=== PATIENT | female | born 1970 | race American Indian/Alaskan Native ===

== ENCOUNTER 2017-07-17 13:45 | Emergency (ER) | payer MEDICARE, MEDICAID | END 2017-07-17 14:30 | disposition left against medical advice (07) | LOC: DL.ED 13:45 | DX: Z53.21 Procedure and treatment not carried out due to patient leaving prior to being seen by health care provider (principal) ==

== ENCOUNTER 2017-07-22 10:06 | Emergency (ER) | payer MEDICARE, MEDICAID ==
[2017-07-22] MEDS ORDERED: Sodium Chloride 0.9% 10 ML Syringe FLUSH PRN (10:20)
--- NOTE | 2017-07-22 10:47 | EDM.PDOC ---
ED HPI GENERAL MEDICAL PROBLEM - General Chief Complaint: General Stated Complaint: COMING FROM DIALYSIS Time Seen by Provider: 07/22/17 10:30 Source of Information: Reports: Patient, RN (dialysis) History Limitations: Reports: No Limitations - History of Present Illness INITIAL COMMENTS - FREE TEXT/NARRATIVE: Patient transferred to ER from dialysis. She has not ran dialysis today. Last run was Wednesday07/20/17. Dialysis nurse states that the patient was seen by a Nurse Practitioner in dialysis who would like the patient evaluated in ER and ultimately sent to [facility] for evaluation by her body shop manager. education research analyst states her skin is yellow, sclera is yellow, and when dialyzed, the dialyzer is yellow. Patient states she has been having some "tummy pain" and points to the right side of her abdomen. Patient is unsure if she has had a fever, but states she has had chills a few times in the past few days. Onset: Gradual Associated Symptoms: Reports: Nausea/Vomiting - Related Data Allergies Allergy/AdvReac Type Severity Reaction Status Date / Time No Known Allergies Allergy Verified 12/31/14 08:03 Home Meds: Home Meds Levothyroxine 125 mcg PO DAILY 12/31/14 [History] Metoprolol Succinate [Toprol XL] 25 mg PO DAILY 12/31/14 [History] Omeprazole [Omeprazole] 20 mg PO DAILY 12/31/14 [History] Sertraline HCl [Sertraline HCl] 150 mg PO DAILY 12/31/14 [History] Simvastatin [Simvastatin] 40 mg PO DAILY 12/31/14 [History] buPROPion HCl [Bupropion Xl] 1 tab PO DAILY 11/25/15 [History] Calcium Carbonate/Vitamin D3 [Calcium Carb 500 MG] 07/22/17 [History] Cholecalciferol (Vitamin D3) [Vitamin D3] 07/22/17 [History] Formoterol Fumarate [Perforomist] 07/22/17 [History] Insulin Detemir [Levemir Flextouch] 07/22/17 [History] Menthol/Zinc Oxide [Calmoseptine Ointment Packet] 07/22/17 [History] Midodrine 07/22/17 [History] Sevelamer Carbonate [Renvela] 07/22/17 [History] Past Medical History Cardiovascular History: Reports: Hypertension Respiratory History: Reports: Sleep Apnea, SOB Genitourinary History: Reports: Dialysis 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 Left necrotic foot Neurological History: Reports: Other (See Below) Other Neuro History: pt is mentally challenged Endocrine/Metabolic History: Reports: Diabetes, Type II, IDDM, Obesity/BMI 30+ Other Immunologic History: MRSA - Infectious Disease History Infectious Disease History: Reports: MRSA Social & Family History - Family History Cardiac: Reports: CAD - Tobacco Use Smoking Status *Q: Never Smoker Second Hand Smoke Exposure: No - Alcohol Use Days Per Week of Alcohol Use: 0 - Recreational Drug Use Recreational Drug Use: No - Living Situation & Occupation Living situation: Reports: , with Spouse, with Family Occupation: Disabled ED ROS GENERAL - Review of Systems Review Of Systems: See Below Constitutional: Reports: Chills, Fatigue, Decreased Appetite, Weight Loss HEENT: Reports: No Symptoms Respiratory: Reports: No Symptoms Cardiovascular: Reports: No Symptoms Endocrine: Reports: High Glucose GI/Abdominal: Reports: Abdominal Pain : Reports: Other (patient does outpatient dialysis 3x weekly) Skin: Reports: Wound (abdomen) Neurological: Reports: No Symptoms Psychiatric: Reports: Depression Hematologic/Lymphatic: Reports: No Symptoms Immunologic: Reports: No Symptoms ED EXAM, GENERAL - Physical Exam Exam: See Below Exam Limited By: No Limitations General Appearance: Alert, WD/WN, No Apparent Distress Nose: Normal Inspection Throat/Mouth: Normal Inspection, Normal Voice, No Airway Compromise Head: Atraumatic, Other Neck: Limited Range of Motion (An area on the left side of the head without hair with what appears to be an old wound. The area is darkened in pigment, but is closed and dry. ) Respiratory/Chest: No Respiratory Distress, Lungs Clear, Normal Breath Sounds, No Accessory Muscle Use, Chest Non-Tender Cardiovascular: Normal Peripheral Pulses, Regular Rate, Rhythm, No JVD, No Murmur, No Rub Back Exam: Normal Inspection, Full Range of Motion Extremities: Normal Inspection, Normal Range of Motion Course - Vital Signs Last Recorded V/S: Last Vital Signs Temp 96.9 F 07/22/17 10:06 Pulse 72 07/22/17 10:06 Resp 18 07/22/17 10:06 BP 148/78 H 07/22/17 10:06 Pulse Ox 94 L 07/22/17 10:06 - Orders/Labs/Meds Orders: Active Orders 24 hr Category Date Time Status Peripheral IV Care [RC] . DIRECTED Care 07/22/17 10:21 Active CULTURE BLOOD [] Stat Lab 07/22/17 10:40 Results CULTURE BLOOD [] Stat Lab 07/22/17 10:46 Received Sodium Chloride 0.9% [Saline Flush] Med 07/22/17 10:20 Active 10 ml FLUSH ASDIRECTED PRN Blood Culture x2 Reflex Set [OM.PC] Stat Oth 07/22/17 10:21 Ordered Peripheral IV Insertion Adult [OM.PC] Stat Ot 07/22/17 10:20 Ordered Medication Orders Sodium Chloride (Saline Flush) 10 ml FLUSH ASDIRECTED PRN PRN Reason: Keep Vein Open Last Admin: 07/22/17 11:05 Dose: 10 ml Labs: Laboratory Tests 07/22/17 07/22/17 07/22/17 Range/Units 10:14 10:46 10:46 WBC 9.7 (5.0-10.0) 10^3/uL RBC 3.68 L (4.2-5.4) 10^6/uL Hgb 10.9 L (12.0-16.0) g/dL Hct 32.7 L (37.0-47.0) % MCV 88.9 (80-100) fL MCH 29.6 (27.0-34.0) pg MCHC 33.3 (33.0-35.0) g/dL Plt Count 202 (150-450) 10^3/uL Neut % (Auto) 74.8 (42.2-75.2) % Lymph % (Auto) 15.7 L (20.5-50.1) % [place] % (Auto) 6.0 (2-8) % Eos % (Auto) 3.1 H (1.0-3.0) % Baso % (Auto) 0.4 (0.0-1.0) % Add Manual Diff Yes Neutrophils % (Manual) 68 % Band Neutrophils % 3 % Lymphocytes % (Manual) 21 % Monocytes % (Manual) 5 % Eosinophils % (Manual) 3 % Sodium 131 L (135-145) mmol/L Potassium 3.8 (3.6-5.0) mmol/L Chloride 90 L (101-111) mmol/L Carbon Dioxide 24.0 (21.0-31.0) mmol/L Anion Gap 20.8 BUN 36 H (7-18) mg/dL Creatinine 5.5 H (0.6-1.3) mg/dL Est Cr Clr Drug Dosing TNP Estimated GFR (MDRD) 8 BUN/Creatinine Ratio 6.54 Glucose 250 H (74-105) mg/dL POC Glucose 254 H (70-105) mg/dl Lactic Acid (0.5-2.2) mmol/L Calcium 8.8 (8.4-10.2) mg/dl Total Bilirubin 6.5 H (0.2-1.0) mg/dL AST 123 H (10-42) IU/L ALT 96 H (10-60) IU/L Alkaline Phosphatase 659 H (42-121) IU/L Total Protein 7.7 (6.7-8.2) g/dl Albumin 2.5 L (3.2-5.5) g/dl Globulin 5.2 Albumin/Globulin Ratio 0.48 /05/31 Range/Units 10:46 WBC (5.0-10.0) 10^3/uL RBC (4.2-5.4) 10^6/uL Hgb (12.0-16.0) g/dL Hct (37.0-47.0) % MCV (80-100) fL MCH (27.0-34.0) pg MCHC (33.0-35.0) g/dL Plt Count (150-450) 10^3/uL Neut % (Auto) (42.2-75.2) % Lymph % (Auto) (20.5-50.1) % [place] % (Auto) (2-8) % Eos % (Auto) (1.0-3.0) % Baso % (Auto) (0.0-1.0) % Add Manual Diff Neutrophils % (Manual) % Band Neutrophils % % Lymphocytes % (Manual) % Monocytes % (Manual) % Eosinophils % (Manual) % Sodium (135-145) mmol/L Potassium (3.6-5.0) mmol/L Chloride (101-111) mmol/L Carbon Dioxide (21.0-31.0) mmol/L Anion Gap BUN (7-18) mg/dL Creatinine (0.6-1.3) mg/dL Est Cr Clr Drug Dosing Estimated GFR (MDRD) BUN/Creatinine Ratio Glucose (74-105) mg/dL POC Glucose (70-105) mg/dl Lactic Acid 1.4 (0.5-2.2) mmol/L Calcium (8.4-10.2) mg/dl Total Bilirubin (0.2-1.0) mg/dL AST (10-42) IU/L ALT (10-60) IU/L Alkaline Phosphatase (42-121) IU/L Total Protein (6.7-8.2) g/dl Albumin (3.2-5.5) g/dl Globulin Albumin/Globulin Ratio Meds: Medications Generic Name Dose Route Start Last Admin Trade Name Freq PRN Reason Stop Dose Admin Sodium Chloride 10 ml 07/22/17 10:20 07/22/17 11:05 Saline Flush FLUSH 10 ml ASDIRECTED PRN Administration Keep Vein Open Departure - Departure Time of Disposition: 12:05 Disposition: DC/Tfer to [facility] 02 Condition: Fair Clinical Impression: Jaundice Chronic kidney disease (CKD) Qualifiers: Chronic kidney disease stage: on chronic dialysis Qualified Code(s): N18.6 - End stage renal disease; Z99.2 - Dependence on renal dialysis - Discharge Information Forms: ED Department Discharge, Interfacility Transfer EMTALA - My Orders Last 24 Hours: My Active Orders 07/22/17 10:20 Sodium Chloride 0.9% [Saline Flush] 10 ml FLUSH ASDIRECTED PRN Peripheral IV Insertion Adult [OM.PC] Stat 07/22/17 10:21 Peripheral IV Care [RC] . DIRECTED Blood Culture x2 Reflex Set [OM.PC] Stat 07/22/17 10:40 CULTURE BLOOD [BC] Stat 07/22/17 10:46 CULTURE BLOOD [BC] Stat - Assessment/Plan Last 24 Hours: My Active Orders 07/22/17 10:20 Sodium Chloride 0.9% [Saline Flush] 10 ml FLUSH ASDIRECTED PRN Peripheral IV Insertion Adult [OM.PC] Stat 07/22/17 10:21 Peripheral IV Care [RC] . DIRECTED Blood Culture x2 Reflex Set [OM.PC] Stat 07/22/17 10:40 CULTURE BLOOD [BC] Stat 07/22/17 10:46 CULTURE BLOOD [BC] Stat
[2017-07-22 11:13] LABS: CHLORIDE,CL 90 mmol/L (101-111); SODIUM,NA 131 mmol/L (135-145)
[2017-07-22 12:14] VITALS: BP 133/64
== END 2017-07-22 12:30 ==
LOC: DL.ED 10:06
DX: R17 Unspecified jaundice (principal); I12.0 Hypertensive chronic kidney disease with stage 5 chronic kidney disease or end stage renal disease; N18.6 End stage renal disease; E11.22 Type 2 diabetes mellitus with diabetic chronic kidney disease; E66.9 Obesity, unspecified; Z79.899 Other long term (current) drug therapy; Z89.511 Acquired absence of right leg below knee
CPT/HCPCS: 36415; 80053; 82962; 83605; 85025; 87040; 99285; J7050; 99284

== ENCOUNTER 2017-08-07 08:31 | Emergency (ER) | payer MEDICARE, MEDICAID ==
[2017-08-07 08:53] VITALS: BP 144/72
--- NOTE | 2017-08-07 08:53 | EDM.PDOC ---
ED HPI GENERAL MEDICAL PROBLEM - General Chief Complaint: Diabetic Complaint Time Seen by Provider: 08/07/17 08:33 Source of Information: Reports: EMS History Limitations: Reports: Altered Mental Status - History of Present Illness INITIAL COMMENTS - FREE TEXT/NARRATIVE: 46 yo female BIB EMS s/p AMS. Per EMS, pt was found drowsy and hard to arouse. States that she is to have dialysis at 9:00 am this morning. Pt is drowsy upon arrival, opens eyes to voice. Incomprehensible sounds. Blood glucose upon arrival <20. Given 2 orange juice and pt now more alert and answering questions appropriately. Onset: Today, Sudden Duration: Getting Worse Associated Symptoms: Reports: No Other Symptoms - Related Data Allergies Allergy/AdvReac Type Severity Reaction Status Date / Time No Known Allergies Allergy Verified 12/31/14 08:03 Home Meds: Home Meds Levothyroxine 200 mcg PO DAILY 12/31/14 [History] Sertraline HCl [Sertraline HCl] 150 mg PO DAILY 12/31/14 [History] buPROPion HCl [Bupropion Xl] 1 tab PO DAILY 11/25/15 [History] Calcium Carbonate/Vitamin D3 [Calcium Carb 500 MG] 1,000 mg PO TID 07/22/17 [ History] Cholecalciferol (Vitamin D3) [Vitamin D3] 1,000 units PO DAILY 07/22/17 [History ] Formoterol Fumarate [Perforomist] 20 mcg INH BID 07/22/17 [History] Insulin Detemir [Levemir Flextouch] 36 units SQ BEDTIME 07/22/17 [History] Menthol/Zinc Oxide [Calmoseptine Ointment Packet] 1 dose TOP BID PRN 07/22/17 [ History] Sevelamer Carbonate [Renvela] 1,600 mg PO TID 07/22/17 [History] Pantoprazole [ProTONIX] 40 mg PO DAILY 08/07/17 [History] Past Medical History Cardiovascular History: Reports: Hypertension Respiratory History: Reports: Sleep Apnea, SOB Genitourinary History: 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 Left necrotic foot Neurological History: Reports: Other (See Below) Other Neuro History: pt is mentally challenged Endocrine/Metabolic History: Reports: Diabetes, Type II, IDDM, Obesity/BMI 30+ Other Immunologic History: MRSA - Infectious Disease History Infectious Disease History: Reports: MRSA - Past Surgical History GI Surgical History: Reports: Cholecystectomy Social & Family History - Family History Family Medical History: Noncontributory Cardiac: Reports: CAD - Tobacco Use Smoking Status *Q: Never Smoker Second Hand Smoke Exposure: No - Caffeine Use Caffeine Use: Reports: None - Alcohol Use Days Per Week of Alcohol Use: 0 - Recreational Drug Use Recreational Drug Use: No - Living Situation & Occupation Living situation: Reports: , with Spouse, with Family Occupation: Disabled ED ROS GENERAL - Review of Systems Review Of Systems: ROS reveals no pertinent complaints other than HPI. ED EXAM GENERAL NO PERIP PULSE - Physical Exam Exam: See Below Exam Limited By: No Limitations General Appearance: Alert, WD/WN, No Apparent Distress Eye Exam: Bilateral Eye: Normal Inspection, PERRL Throat/Mouth: Normal Inspection, Normal Lips, Normal Teeth, Normal Gums, Normal Oropharynx, Normal Voice, No Airway Compromise Head: Atraumatic, Normocephalic Respiratory/Chest: No Respiratory Distress, Lungs Clear, Normal Breath Sounds, No Accessory Muscle Use, Chest Non-Tender Cardiovascular: Normal Peripheral Pulses, Regular Rate, Rhythm, No Edema, No Gallop, No JVD, No Murmur, No Rub GI/Abdominal: Normal Bowel Sounds, Soft, Non-Tender, No Organomegaly, No Distention, No Abnormal Bruit, No Mass Neurological: Alert, Oriented, CN II-XII Intact, Normal Cognition, No Motor/ Sensory Deficits Skin Exam: Warm, Dry, Intact Course - Vital Signs Last Recorded V/S: Last Vital Signs Temp 95.5 F 08/07/17 08:42 Pulse 73 08/07/17 08:42 Resp 12 08/07/17 08:42 BP 144/72 H 08/07/17 08:42 Pulse Ox 92 L 08/07/17 08:42 - Orders/Labs/Meds Orders: Active Orders 24 hr Category Date Time Status Blood Glucose Check, Bedside [RC] ONETIME Care 08/07/17 08:45 Active Blood Glucose Check, Bedside [RC] ONETIME Care 08/07/17 10:10 Active Blood Glucose Check, Bedside [RC] ONETIME Care 08/07/17 10:30 Active Blood Glucose Check, Bedside [RC] ONETIME Care 08/07/17 11:14 Active Glucose [Blood Glucose Check, Bedside] [RC] ONETIME Care 08/07/17 09:10 Active Dextrose 5%-0.9% NaCl [Dextrose 5%-Normal Saline] 1,000 Med 08/07/17 09:15 Active ml IV ASDIRECTED Medication Orders Dextrose/Sodium Chloride (Dextrose 5%-Normal Saline) 1,000 mls @ 100 mls/hr IV ASDIRECTED JOANN Last Admin: 08/07/17 09:22 Dose: 100 mls/hr Labs: Laboratory Tests 08/07/17 08/07/17 08/07/17 Range/Units 08:39 08:48 08:48 WBC 7.8 (5.0-10.0) 10^3/uL RBC 2.43 L (4.2-5.4) 10^6/uL Hgb 7.3 L (12.0-16.0) g/dL Hct 23.3 L (37.0-47.0) % MCV 95.9 (80-100) fL MCH 30.0 (27.0-34.0) pg MCHC 31.3 L (33.0-35.0) g/dL Plt Count 346 (150-450) 10^3/uL Neut % (Auto) 62.7 (42.2-75.2) % Lymph % (Auto) 22.0 (20.5-50.1) % [place] % (Auto) 8.6 H (2-8) % Eos % (Auto) 4.8 H (1.0-3.0) % Baso % (Auto) 1.9 H (0.0-1.0) % Sodium 132 L (135-145) mmol/L Potassium 3.6 (3.6-5.0) mmol/L Chloride 93 L (101-111) mmol/L Carbon Dioxide 27.0 (21.0-31.0) mmol/L Anion Gap 15.6 BUN 26 H (7-18) mg/dL Creatinine 4.2 H (0.6-1.3) mg/dL Est Cr Clr Drug Dosing TNP Estimated GFR (MDRD) 11 BUN/Creatinine Ratio 6.19 Glucose 21 L* (74-105) mg/dL POC Glucose < 20 L* (70-105) mg/dl Calcium 9.0 (8.4-10.2) mg/dl Total Bilirubin 10.8 H (0.2-1.0) mg/dL AST 58 H (10-42) IU/L ALT 46 (10-60) IU/L Alkaline Phosphatase 814 H (42-121) IU/L Total Protein 8.1 (6.7-8.2) g/dl Albumin 2.4 L (3.2-5.5) g/dl Globulin 5.7 Albumin/Globulin Ratio 0.42 08/07/17 08/07/17 08/07/17 Range/Units 09:12 09:46 10:18 WBC (5.0-10.0) 10^3/uL RBC (4.2-5.4) 10^6/uL Hgb (12.0-16.0) g/dL Hct (37.0-47.0) % MCV (80-100) fL MCH (27.0-34.0) pg MCHC (33.0-35.0) g/dL Plt Count (150-450) 10^3/uL Neut % (Auto) (42.2-75.2) % Lymph % (Auto) (20.5-50.1) % [place] % (Auto) (2-8) % Eos % (Auto) (1.0-3.0) % Baso % (Auto) (0.0-1.0) % Sodium (135-145) mmol/L Potassium (3.6-5.0) mmol/L Chloride (101-111) mmol/L Carbon Dioxide (21.0-31.0) mmol/L Anion Gap BUN (7-18) mg/dL Creatinine (0.6-1.3) mg/dL Est Cr Clr Drug Dosing Estimated GFR (MDRD) BUN/Creatinine Ratio Glucose (74-105) mg/dL POC Glucose 30 L* 112 H 99 (70-105) mg/dl Calcium (8.4-10.2) mg/dl Total Bilirubin (0.2-1.0) mg/dL AST (10-42) IU/L ALT (10-60) IU/L Alkaline Phosphatase (42-121) IU/L Total Protein (6.7-8.2) g/dl Albumin (3.2-5.5) g/dl Globulin Albumin/Globulin Ratio 08/07/17 Range/Units 10:59 WBC (5.0-10.0) 10^3/uL RBC (4.2-5.4) 10^6/uL Hgb (12.0-16.0) g/dL Hct (37.0-47.0) % MCV (80-100) fL MCH (27.0-34.0) pg MCHC (33.0-35.0) g/dL Plt Count (150-450) 10^3/uL Neut % (Auto) (42.2-75.2) % Lymph % (Auto) (20.5-50.1) % [place] % (Auto) (2-8) % Eos % (Auto) (1.0-3.0) % Baso % (Auto) (0.0-1.0) % Sodium (135-145) mmol/L Potassium (3.6-5.0) mmol/L Chloride (101-111) mmol/L Carbon Dioxide (21.0-31.0) mmol/L Anion Gap BUN (7-18) mg/dL Creatinine (0.6-1.3) mg/dL Est Cr Clr Drug Dosing Estimated GFR (MDRD) BUN/Creatinine Ratio Glucose (74-105) mg/dL POC Glucose 91 (70-105) mg/dl Calcium (8.4-10.2) mg/dl Total Bilirubin (0.2-1.0) mg/dL AST (10-42) IU/L ALT (10-60) IU/L Alkaline Phosphatase (42-121) IU/L Total Protein (6.7-8.2) g/dl Albumin (3.2-5.5) g/dl Globulin Albumin/Globulin Ratio Meds: Medications Generic Name Dose Route Start Last Admin Trade Name Freq PRN Reason Stop Dose Admin Dextrose/Sodium Chloride 1,000 mls @ 100 mls/hr 08/07/17 09:15 08/07/17 09:22 Dextrose 5%-Normal Saline IV 100 mls/hr ASDIRECTED JOANN Administration Discontinued Medications Generic Name Dose Route Start Last Admin Trade Name Freq PRN Reason Stop Dose Admin Dextrose/Water 50 ml 08/07/17 09:13 08/07/17 09:17 Dextrose 50% In Water IVPUSH 08/07/17 09:14 50 ml ONETIME ONE Administration - Re-Assessments/Exams Free Text/Narrative Re-Assessment/Exam: 08/07/17 10:58 Pt more alert and eating food tray. States that she thinks her Insulin dropped her blood sugar. BG 99 on initial repeat. Secondary repeat was 115. Will dc patient to have her dialysis. 08/07/17 12:10 Repeat blood glucose 122. Will dc to dialysis Departure - Departure Time of Disposition: 12:11 Disposition: Home, Self-Care 01 Condition: Good Clinical Impression: Hypoglycemia - Discharge Information Instructions: Type 2 Diabetes Mellitus, Adult, [id number], Hypoglycemia Forms: ED Department Discharge Additional Instructions: Do not take 48 units of Levimir. Take the 36 units as instructed on discharge. Follow up with your PCP on Wednesday. Return for any worsening symptoms. Go directly to dialysis - My Orders Last 24 Hours: My Active Orders 08/07/17 08:45 Blood Glucose Check, Bedside [RC] ONETIME 08/07/17 09:10 Glucose [Blood Glucose Check, Bedside] [RC] ONETIME 08/07/17 09:15 Dextrose 5%-0.9% NaCl [Dextrose 5%-Normal Saline] 1,000 ml IV ASDIRECTED 08/07/17 10:10 Blood Glucose Check, Bedside [RC] ONETIME 08/07/17 10:30 Blood Glucose Check, Bedside [RC] ONETIME 08/07/17 11:14 Blood Glucose Check, Bedside [RC] ONETIME - Assessment/Plan Last 24 Hours: My Active Orders 08/07/17 08:45 Blood Glucose Check, Bedside [RC] ONETIME 08/07/17 09:10 Glucose [Blood Glucose Check, Bedside] [RC] ONETIME 08/07/17 09:15 Dextrose 5%-0.9% NaCl [Dextrose 5%-Normal Saline] 1,000 ml IV ASDIRECTED 08/07/17 10:10 Blood Glucose Check, Bedside [RC] ONETIME 08/07/17 10:30 Blood Glucose Check, Bedside [RC] ONETIME 08/07/17 11:14 Blood Glucose Check, Bedside [RC] ONETIME
[2017-08-07] MEDS ORDERED: 50% Dextrose in Water 50 ML Syringe IVPUSH ONE (09:13)
[2017-08-07] MEDS ORDERED: Dextrose 5%-0.9% NaCl 1,000 ML IV SCH (09:15)
[2017-08-07 09:37] LABS: CHLORIDE,CL 93 mmol/L (101-111); SODIUM,NA 132 mmol/L (135-145)
== END 2017-08-07 13:02 | disposition home or self-care (01) ==
LOC: DL.ED 08:31
DX: E11.649 Type 2 diabetes mellitus with hypoglycemia without coma (principal); I10 Essential (primary) hypertension; G47.30 Sleep apnea, unspecified; Z99.2 Dependence on renal dialysis; Z90.49 Acquired absence of other specified parts of digestive tract; E66.9 Obesity, unspecified; Z79.4 Long term (current) use of insulin; Z79.899 Other long term (current) drug therapy; Z68.43 Body mass index [BMI] 50.0-59.9, adult
CPT/HCPCS: 36415; 80053; 82962; 85025; 96361; 96374; 99285; J7042; 99284; J7060

== ENCOUNTER 2017-08-12 14:53 | Emergency (ER) | payer MEDICARE, MEDICAID ==
[2017-08-12 15:06] VITALS: BP 133/68
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
[2017-08-12 15:45] LABS: CHLORIDE,CL 96 mmol/L (101-111); SODIUM,NA 135 mmol/L (135-145)
== END 2017-08-12 16:30 | disposition left against medical advice (07) ==
LOC: DL.ED 14:53
DX: I12.0 Hypertensive chronic kidney disease with stage 5 chronic kidney disease or end stage renal disease (principal); N18.6 End stage renal disease; D63.1 Anemia in chronic kidney disease; K92.2 Gastrointestinal hemorrhage, unspecified; Z79.899 Other long term (current) drug therapy; Z79.4 Long term (current) use of insulin; E66.9 Obesity, unspecified; Z90.49 Acquired absence of other specified parts of digestive tract; Z99.2 Dependence on renal dialysis
CPT/HCPCS: 36415; 80053; 82272; 85025; 99284

== ENCOUNTER 2017-08-12 18:16 | Emergency (ER) | payer MEDICARE, MEDICAID ==
[2017-08-12 18:41] VITALS: BP 143/76
--- NOTE | 2017-08-12 18:56 | EDM.PDOC ---
ED HPI GENERAL MEDICAL PROBLEM - General Chief Complaint: General Stated Complaint: HEMOGLOBIN CHANGE Time Seen by Provider: 08/12/17 18:55 Source of Information: Reports: Patient, Old Records History Limitations: Reports: No Limitations - History of Present Illness INITIAL COMMENTS - FREE TEXT/NARRATIVE: ER records showed Pt was to be tranf to [facility] but pt left for a time then returned. [facility] has no room. - Related Data Allergies Allergy/AdvReac Type Severity Reaction Status Date / Time No Known Allergies Allergy Verified 08/12/17 18:41 Home Meds: Home Meds Levothyroxine 200 mcg PO DAILY 12/31/14 [History] Sertraline HCl [Sertraline HCl] 150 mg PO DAILY 12/31/14 [History] buPROPion HCl [Bupropion Xl] 1 tab PO DAILY 11/25/15 [History] Calcium Carbonate/Vitamin D3 [Calcium Carb 500 MG] 1,000 mg PO TID 07/22/17 [ History] Cholecalciferol (Vitamin D3) [Vitamin D3] 1,000 units PO DAILY 07/22/17 [History ] Formoterol Fumarate [Perforomist] 20 mcg INH BID 07/22/17 [History] Insulin Detemir [Levemir Flextouch] 36 units SQ BEDTIME 07/22/17 [History] Menthol/Zinc Oxide [Calmoseptine Ointment Packet] 1 dose TOP BID PRN 07/22/17 [ History] Sevelamer Carbonate [Renvela] 1,600 mg PO TID 07/22/17 [History] Pantoprazole [ProTONIX] 40 mg PO DAILY 08/07/17 [History] Past Medical History HEENT History: Reports: None Cardiovascular History: Reports: Hypertension Respiratory History: Reports: Sleep Apnea, SOB Genitourinary History: Reports: 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 Left necrotic foot Neurological History: Reports: Other (See Below) Other Neuro History: pt is mentally challenged Endocrine/Metabolic History: Reports: Diabetes, Type II, IDDM, Obesity/BMI 30+ Other Immunologic History: MRSA Oncologic (Cancer) History: Reports: None - Infectious Disease History Infectious Disease History: Reports: MRSA - Past Surgical History GI Surgical History: Reports: Cholecystectomy Social & Family History - Family History Family Medical History: Noncontributory Cardiac: Reports: CAD - Tobacco Use Smoking Status *Q: Never Smoker Second Hand Smoke Exposure: No - Caffeine Use Caffeine Use: Reports: None - Alcohol Use Days Per Week of Alcohol Use: 0 - Recreational Drug Use Recreational Drug Use: No - Living Situation & Occupation Living situation: Reports: , with Spouse, with Family Occupation: Disabled ED ROS GENERAL - Review of Systems Review Of Systems: ROS reveals no pertinent complaints other than HPI. ED EXAM, GENERAL - Physical Exam Exam: See Below Exam Limited By: No Limitations General Appearance: Alert, WD/WN, No Apparent Distress Ears: Hearing Grossly Normal Throat/Mouth: Normal Voice, No Airway Compromise Head: Atraumatic Neck: Non-Tender, Full Range of Motion Respiratory/Chest: No Respiratory Distress, No Accessory Muscle Use, Rhonchi, Other (basilar). No: Crackles, Rales Cardiovascular: Regular Rate, Rhythm GI/Abdominal: Soft, Tender, Other (minimal epiG discomfort). No: Distended, Guarding, Rigid, Rebound Neurological: Alert, Oriented, Normal Cognition Psychiatric: Flat Affect Skin Exam: Warm, Dry, Pallor Lymphatic: No Adenopathy Course - Vital Signs Last Recorded V/S: Last Vital Signs Temp 36.0 C 08/12/17 18:33 Pulse 80 08/12/17 18:33 Resp 19 08/12/17 18:33 BP 143/76 H 08/12/17 18:33 Pulse Ox 98 08/12/17 18:33 - Re-Assessments/Exams Free Text/Narrative Re-Assessment/Exam: 08/12/17 19:[address] Felix @ [facility] who kindly accepted pt. Departure - Departure Time of Disposition: 19:28 Disposition: DC/Tfer to Acute Hospital 02 Condition: Fair Clinical Impression: End stage renal disease on dialysis GI (gastrointestinal bleed) Qualifiers: GI bleed type/associated pathology: unspecified gastrointestinal hemorrhage type Qualified Code(s): K92.2 - Gastrointestinal hemorrhage, unspecified Chronic kidney disease (CKD) Qualifiers: Chronic kidney disease stage: on chronic dialysis Qualified Code(s): N18.6 - End stage renal disease - Discharge Information Forms: Interfacility Transfer [facility]
== END 2017-08-12 19:58 ==
LOC: DL.ED 18:16
DX: I12.0 Hypertensive chronic kidney disease with stage 5 chronic kidney disease or end stage renal disease (principal); N18.6 End stage renal disease; K92.2 Gastrointestinal hemorrhage, unspecified; E11.22 Type 2 diabetes mellitus with diabetic chronic kidney disease; E66.9 Obesity, unspecified; Z79.899 Other long term (current) drug therapy; Z79.4 Long term (current) use of insulin; Z90.49 Acquired absence of other specified parts of digestive tract; D63.1 Anemia in chronic kidney disease
CPT/HCPCS: 36415; 80053; 82272; 85025; 99284

== ENCOUNTER 2017-11-04 12:17 | Emergency (ER) | payer MEDICARE, MEDICAID ==
[2017-11-04] MEDS ORDERED: Lidocaine 1% 30 ML SDV INJECT ONE (12:25)
[2017-11-04 12:28] VITALS: BP 159/84
--- NOTE | 2017-11-04 12:31 | EDM.PDOC ---
ED HPI GENERAL MEDICAL PROBLEM - General Chief Complaint: Back Pain or Injury Stated Complaint: SORE. CAME FROM DIALYSIS Time Seen by Provider: 11/04/17 12:25 Source of Information: Reports: Patient History Limitations: Reports: No Limitations - History of Present Illness INITIAL COMMENTS - FREE TEXT/NARRATIVE: This 47 yo female patient reports to the ED with a sore on her back with increased pain in the area. The patient reports she started noticing increased pain over the past 2 days. The patient has not attempted to visit her primary care facility for treatment. The patient rates her pain at a 10/10. Duration: Day(s):, Constant, Getting Worse Location: Reports: Back Quality: Reports: Ache, Sharp Severity: Severe Improves with: Reports: None Worsens with: Reports: None Associated Symptoms: Reports: No Other Symptoms Middle Back Pain Score (Numeric/FACES): 10 - Related Data Allergies Allergy/AdvReac Type Severity Reaction Status Date / Time No Known Allergies Allergy Verified 08/12/17 18:41 Home Meds: Home Meds Levothyroxine 200 mcg PO DAILY 12/31/14 [History] Sertraline HCl [Sertraline HCl] 150 mg PO DAILY 12/31/14 [History] buPROPion HCl [Bupropion Xl] 1 tab PO DAILY 11/25/15 [History] Calcium Carbonate/Vitamin D3 [Calcium Carb 500 MG] 1,000 mg PO TID 07/22/17 [ History] Cholecalciferol (Vitamin D3) [Vitamin D3] 1,000 units PO DAILY 07/22/17 [History ] Formoterol Fumarate [Perforomist] 20 mcg INH BID 07/22/17 [History] Insulin Detemir [Levemir Flextouch] 36 units SQ BEDTIME 07/22/17 [History] Menthol/Zinc Oxide [Calmoseptine Ointment Packet] 1 dose TOP BID PRN 07/22/17 [ History] Sevelamer Carbonate [Renvela] 1,600 mg PO TID 07/22/17 [History] Pantoprazole [ProTONIX] 40 mg PO DAILY 08/07/17 [History] Past Medical History HEENT History: Reports: None Cardiovascular History: Reports: Hypertension Respiratory History: Reports: Sleep Apnea, SOB Genitourinary History: 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 Left necrotic foot Neurological History: Reports: Other (See Below) Other Neuro History: pt is mentally challenged Endocrine/Metabolic History: Reports: Diabetes, Type II, IDDM, Obesity/BMI 30+ Other Immunologic History: MRSA Oncologic (Cancer) History: Reports: None - Infectious Disease History Infectious Disease History: Reports: MRSA - Past Surgical History GI Surgical History: Reports: Cholecystectomy Social & Family History - Family History Family Medical History: Noncontributory Cardiac: Reports: CAD - Tobacco Use Smoking Status *Q: Never Smoker Second Hand Smoke Exposure: No - Caffeine Use Caffeine Use: Reports: None - Alcohol Use Days Per Week of Alcohol Use: 0 - Recreational Drug Use Recreational Drug Use: No - Living Situation & Occupation Living situation: Reports: , with Spouse, with Family Occupation: Disabled ED ROS GENERAL - Review of Systems Review Of Systems: ROS reveals no pertinent complaints other than HPI. ED EXAM, GENERAL - Physical Exam Exam: See Below Exam Limited By: No Limitations General Appearance: Alert, WD/WN, Moderate Distress Eye Exam: Bilateral Eye: EOMI, Normal Inspection, PERRL Ears: Normal External Exam, Normal Canal, Hearing Grossly Normal, Normal TMs Nose: Normal Inspection, Normal Mucosa, No Blood Throat/Mouth: Normal Inspection, Normal Lips, Normal Teeth, Normal Gums, Normal Oropharynx, Normal Voice, No Airway Compromise Head: Atraumatic, Normocephalic Neck: Normal Inspection, Supple, Non-Tender, Full Range of Motion Respiratory/Chest: No Respiratory Distress, Lungs Clear, Normal Breath Sounds, No Accessory Muscle Use, Chest Non-Tender Cardiovascular: Normal Peripheral Pulses, Regular Rate, Rhythm, No Edema, No Gallop, No JVD, No Murmur, No Rub GI/Abdominal: Normal Bowel Sounds, Soft, Non-Tender, No Organomegaly, No Distention, No Abnormal Bruit, No Mass (Female) Exam: Deferred Rectal (Female) Exam: Deferred Back Exam: Other (mid back tenderness over abscess) Extremities: Other (bilateral below the knee amputations) Neurological: Alert, Oriented Psychiatric: Normal Affect, Normal Mood Skin Exam: Erythema, Increased Warmth, Other (abscess mid back) Lymphatic: No Adenopathy ED I&D PROCEDURES - I&D Site: lower back Skin prep: Providone-Iodine (Betadine), Isopropyl Alcohol (Alcohol) Local anesthesia - Lidocaine (Xylocaine): 1% Plain Local Anesthetic Volume: 5cc Area Incised With: 11 Blade Drainage: Purulent, Bloody, Large Amount Probed to Break Up Loculations: Yes Packed With: 1/4 in. Iodoform Sterile Dressing: Adhesive Dressing Complications: No Course - Vital Signs Last Recorded V/S: Last Vital Signs Temp 36.2 C 11/04/17 12:27 Pulse 81 11/04/17 12:27 Resp 20 11/04/17 12:27 BP 159/84 H 11/04/17 12:27 Pulse Ox 94 L 11/04/17 12:27 - Orders/Labs/Meds Orders: Active Orders 24 hr Category Date Time Status COMPREHENSIVE METABOLIC PN,CMP [CHEM] Urgent Lab 11/04/17 12:40 Received CULTURE BLOOD [BC] Stat Lab 11/04/17 12:40 Received CULTURE BLOOD [BC] Stat Lab 11/04/17 12:53 Results LACTIC ACID [CHEM] Stat Lab 11/04/17 12:40 Received Blood Culture x2 Reflex Set [OM.PC] Stat Oth 11/04/17 12:26 Ordered Labs: Laboratory Tests 11/04/17 Range/Units 12:40 WBC 12.6 H (5.0-10.0) 10^3/uL RBC 4.17 L (4.2-5.4) 10^6/uL Hgb 11.9 L D (12.0-16.0) g/dL Hct 36.1 L (37.0-47.0) % MCV 86.6 D (80-100) fL MCH 28.5 (27.0-34.0) pg MCHC 33.0 (33.0-35.0) g/dL Plt Count 343 (150-450) 10^3/uL Neut % (Auto) 77.1 H (42.2-75.2) % Lymph % (Auto) 13.4 L (20.5-50.1) % [place] % (Auto) 5.2 (2-8) % Eos % (Auto) 3.9 H (1.0-3.0) % Baso % (Auto) 0.4 (0.0-1.0) % Meds: Medications Discontinued Medications Generic Name Dose Route Start Last Admin Trade Name Freq PRN Reason Stop Dose Admin Lidocaine HCl 30 ml 11/04/17 12:25 Xylocaine-Mpf 1% INJECT 11/04/17 12:26 ONETIME ONE Departure - Departure Time of Disposition: 13:17 Disposition: Home, Self-Care 01 Condition: Fair Clinical Impression: Abscess of back - Discharge Information Instructions: Incision and Drainage, Abscess, [id number], Incision and Drainage, Care After Forms: ED Department Discharge Care Plan Goals: The patient and family were advised of the examination results during the visit. The abscess was drained while in the ED with packing placed to promote continued drainage. The patient was given an oral dose of Newcomb while in the ED. The patient should follow-up with her primary care facility early next week for continued evaluation and further treatment. The patient was given a script for Bactrim DS to take 1 by mouth 2 times per day for 14 day sand Keflex (500 mg ) to take 1 by mouth 3 times per day for 14 days. If the patient has any additional symptoms or concerns, the patient should follow-up with her primary care facility or return to the emergency department. - My Orders Last 24 Hours: My Active Orders 11/04/17 12:26 Blood Culture x2 Reflex Set [OM.PC] Stat 11/04/17 12:40 COMPREHENSIVE METABOLIC PN,CMP [CHEM] Urgent CULTURE BLOOD [BC] Stat LACTIC ACID [CHEM] Stat 11/04/17 12:53 CULTURE BLOOD [BC] Stat - Assessment/Plan Last 24 Hours: My Active Orders 11/04/17 12:26 Blood Culture x2 Reflex Set [OM.PC] Stat 11/04/17 12:40 COMPREHENSIVE METABOLIC PN,CMP [CHEM] Urgent CULTURE BLOOD [BC] Stat LACTIC ACID [CHEM] Stat 11/04/17 12:53 CULTURE BLOOD [BC] Stat
[2017-11-04] MEDS ORDERED: Acetaminophen/HYDROcodone 325-10 MG Tab PO ONE (13:32)
== END 2017-11-04 13:55 | disposition home or self-care (01) ==
LOC: DL.ED 12:17
DX: L02.212 Cutaneous abscess of back [any part, except buttock and flank] (principal); I10 Essential (primary) hypertension; E11.9 Type 2 diabetes mellitus without complications; Z99.2 Dependence on renal dialysis; Z79.4 Long term (current) use of insulin; Z79.899 Other long term (current) drug therapy
CPT/HCPCS: 10061; 36415; 80053; 83605; 85025; 87040; 87070; 87077; 87186; 99283; A9270; 10060

== ENCOUNTER 2017-11-10 14:45 | Emergency (ER) | payer MEDICARE, MEDICAID ==
--- NOTE | 2017-11-10 14:46 | EDM.PDOC ---
ED HPI GENERAL MEDICAL PROBLEM - General Chief Complaint: Abdominal Pain Stated Complaint: IN BY AMBULANCE Time Seen by Provider: 11/10/17 14:45 Source of Information: Reports: Patient, EMS, Old Records, RN, RN Notes Reviewed History Limitations: Reports: No Limitations - History of Present Illness INITIAL COMMENTS - FREE TEXT/NARRATIVE: Arrives from home by ambulance with c/o of 3 day duration of increasing RUQ abdominal pain with nausea and vomiting. Denies fever, chills, or change in bowel habits. Pt report a similar much less intense pain on/off at times for several months, but not associated with nausea or vomiting. Pt states that today the pain became unbearable, rated 10/10 so she called the ambulance. Last dialysis was yesterday, full run. Onset: Gradual Onset Date: 11/08/17 Duration: Constant, Getting Worse Location: Reports: Abdomen Quality: Reports: Ache Severity: Severe Improves with: Reports: None Worsens with: Reports: None Associated Symptoms: Reports: No Other Symptoms Abdomen Pain Score (Numeric/FACES): 10 - Related Data Allergies Allergy/AdvReac Type Severity Reaction Status Date / Time No Known Allergies Allergy Verified 11/10/17 14:47 Home Meds: Home Meds Levothyroxine 200 mcg PO DAILY 12/31/14 [History] Sertraline HCl [Sertraline HCl] 150 mg PO DAILY 12/31/14 [History] buPROPion HCl [Bupropion Xl] 1 tab PO DAILY 11/25/15 [History] Calcium Carbonate/Vitamin D3 [Calcium Carb 500 MG] 1,000 mg PO TID 07/22/17 [ History] Cholecalciferol (Vitamin D3) [Vitamin D3] 1,000 units PO DAILY 07/22/17 [History ] Formoterol Fumarate [Perforomist] 20 mcg INH BID 07/22/17 [History] Insulin Detemir [Levemir Flextouch] 36 units SQ BEDTIME 07/22/17 [History] Menthol/Zinc Oxide [Calmoseptine Ointment Packet] 1 dose TOP BID PRN 07/22/17 [ History] Sevelamer Carbonate [Renvela] 1,600 mg PO TID 07/22/17 [History] Pantoprazole [ProTONIX] 40 mg PO DAILY 08/07/17 [History] Past Medical History HEENT History: Reports: None Cardiovascular History: Reports: Hypertension Respiratory History: Reports: Sleep Apnea, SOB Gastrointestinal History: Reports: GERD Genitourinary History: Reports: Dialysis 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 Left necrotic foot Neurological History: Reports: Other (See Below) Other Neuro History: pt is mentally challenged Psychiatric History: Reports: Anxiety, Depression Endocrine/Metabolic History: Reports: Diabetes, Type II, IDDM, Obesity/BMI 30+ Other Immunologic History: MRSA Oncologic (Cancer) History: Reports: None - Infectious Disease History Infectious Disease History: Reports: MRSA - Past Surgical History GI Surgical History: Reports: Cholecystectomy Social & Family History - Family History Family Medical History: Noncontributory Cardiac: Reports: CAD - Tobacco Use Smoking Status *Q: Never Smoker Second Hand Smoke Exposure: No - Caffeine Use Caffeine Use: Reports: None - Alcohol Use Days Per Week of Alcohol Use: 0 - Recreational Drug Use Recreational Drug Use: No - Living Situation & Occupation Living situation: Reports: , with Spouse, with Family Occupation: Disabled ED ROS GENERAL - Review of Systems Review Of Systems: ROS reveals no pertinent complaints other than HPI. ED EXAM, GI/ABD - Physical Exam Exam: See Below Exam Limited By: No Limitations General Appearance: Alert, No Apparent Distress, Obese, Other (chronically ill appearing) Eyes: Bilateral: Normal Appearance (no scleral icterus) Nose: Normal Inspection Throat/Mouth: Normal Inspection, Normal Oropharynx, Normal Voice, No Airway Compromise Head: Atraumatic, Normocephalic Neck: Normal Inspection, Supple, Non-Tender, Full Range of Motion Respiratory/Chest: No Respiratory Distress, Lungs Clear, Normal Breath Sounds, No Accessory Muscle Use, Chest Non-Tender Cardiovascular: Regular Rate, Rhythm GI/Abdominal Exam: Normal Bowel Sounds, Soft, No Distention, No Abnormal Bruit, Tender (focal RUQ tenderness without peritoneal signs). No: Guarding, Rigid, Rebound (Female) Exam: Deferred Rectal (Female) Exam: Deferred Back Exam: Normal Inspection. No: CVA Tenderness (L), CVA Tenderness (R) Neurological: Alert, Oriented, No Motor/Sensory Deficits Psychiatric: Normal Affect, Normal Mood Skin Exam: Warm, Dry, Other (abdominal skin ulcers and midline lower thoracic decubitus ulcers, subacute/chronic) Course - Vital Signs Last Recorded V/S: Last Vital Signs Temp 35.8 C 11/10/17 14:49 Pulse 79 11/10/17 14:49 Resp 18 11/10/17 14:49 BP 156/76 H 11/10/17 14:49 Pulse Ox 98 11/10/17 14:49 - Orders/Labs/Meds Orders: Active Orders 24 hr Category Date Time Status Peripheral IV Care [RC] . DIRECTED Care 11/10/17 14:51 Active CULTURE BLOOD [BC] Stat Lab 11/10/17 15:03 Received CULTURE BLOOD [BC] Stat Lab 11/10/17 15:06 Results Sodium Chloride 0.9% [Saline Flush] Med 11/10/17 14:51 Active 10 ml FLUSH ASDIRECTED PRN Blood Culture x2 Reflex Set [OM.PC] Stat Oth 11/10/17 14:51 Ordered Peripheral IV Insertion Adult [OM.PC] Stat Oth 11/10/17 14:51 Ordered Medication Orders Sodium Chloride (Saline Flush) 10 ml FLUSH ASDIRECTED PRN PRN Reason: Keep Vein Open Last Admin: 11/10/17 15:05 Dose: 10 ml Labs: Laboratory Tests 11/10/17 11/10/17 11/10/17 Range/Units 15:03 15:03 15:03 WBC 7.0 (5.0-10.0) 10^3/uL RBC 3.57 L (4.2-5.4) 10^6/uL Hgb 10.2 L D (12.0-16.0) g/dL Hct 31.6 L (37.0-47.0) % MCV 88.5 (80-100) fL MCH 28.6 (27.0-34.0) pg MCHC 32.3 L (33.0-35.0) g/dL Plt Count 353 (150-450) 10^3/uL Neut % (Auto) 66.7 (42.2-75.2) % Lymph % (Auto) 19.4 L (20.5-50.1) % [place] % (Auto) 5.1 (2-8) % Eos % (Auto) 8.4 H (1.0-3.0) % Baso % (Auto) 0.4 (0.0-1.0) % Sodium 136 (135-145) mmol/L Potassium 4.7 (3.6-5.0) mmol/L Chloride 96 L (101-111) mmol/L Carbon Dioxide 29.0 (21.0-31.0) mmol/L Anion Gap 15.7 BUN 17 (7-18) mg/dL Creatinine 4.4 H (0.6-1.3) mg/dL Est Cr Clr Drug Dosing 12.64 mL/min Estimated GFR (MDRD) 11 BUN/Creatinine Ratio 3.86 Glucose 190 H (74-105) mg/dL Lactic Acid 1.1 (0.5-2.2) mmol/L Calcium 8.2 L (8.4-10.2) mg/dl Total Bilirubin 1.8 H (0.2-1.0) mg/dL AST 62 H (10-42) IU/L ALT 39 (10-60) IU/L Alkaline Phosphatase 1125 H (42-121) IU/L Total Protein 7.5 (6.7-8.2) g/dl Albumin 2.6 L (3.2-5.5) g/dl Globulin 4.9 Albumin/Globulin Ratio 0.53 Amylase 50 (28-100) U/L Lipase 46 (22-51) U/L Meds: Medications Generic Name Dose Route Start Last Admin Trade Name Freq PRN Reason Stop Dose Admin Sodium Chloride 10 ml 11/10/17 14:51 11/10/17 15:05 Saline Flush FLUSH 10 ml ASDIRECTED PRN Administration Keep Vein Open Discontinued Medications Generic Name Dose Route Start Last Admin Trade Name Freq PRN Reason Stop Dose Admin Hydromorphone HCl 1 mg 11/10/17 14:57 11/10/17 15:08 Dilaudid IVPUSH 11/10/17 14:58 1 mg ONETIME ONE Administration Ondansetron HCl 4 mg 11/10/17 14:57 11/10/17 15:08 Zofran IV 11/10/17 14:58 4 mg ONETIME ONE Administration - Re-Assessments/Exams Free Text/Narrative Re-Assessment/Exam: 11/10/17 16:[address] Torres, he advises to transfer the pt to [facility] to a hospitalist for further evaluation and he will provide dialysis/neph. services. Departure - Departure Time of Disposition: 16:00 Disposition: DC/Tfer to Acute Hospital 02 Condition: Undetermined Clinical Impression: Alkaline phosphatase elevation, End stage renal disease on dialysis Abdominal pain Qualifiers: Abdominal location: right upper quadrant Qualified Code(s): R10.11 - Right upper quadrant pain - Discharge Information Forms: ED Department Discharge, Interfacility Transfer EMTALA - My Orders Last 24 Hours: My Active Orders 11/10/17 14:51 Peripheral IV Care [RC] . DIRECTED Sodium Chloride 0.9% [Saline Flush] 10 ml FLUSH ASDIRECTED PRN Blood Culture x2 Reflex Set [OM.PC] Stat Peripheral IV Insertion Adult [OM.PC] Stat 11/10/17 15:03 CULTURE BLOOD [BC] Stat 11/10/17 15:06 CULTURE BLOOD [BC] Stat - Assessment/Plan Last 24 Hours: My Active Orders 11/10/17 14:51 Peripheral IV Care [RC] . DIRECTED Sodium Chloride 0.9% [Saline Flush] 10 ml FLUSH ASDIRECTED PRN Blood Culture x2 Reflex Set [OM.PC] Stat Peripheral IV Insertion Adult [OM.PC] Stat 11/10/17 15:03 CULTURE BLOOD [BC] Stat 11/10/17 15:06 CULTURE BLOOD [BC] Stat
[2017-11-10] MEDS ORDERED: Sodium Chloride 0.9% 10 ML Syringe FLUSH PRN (14:51)
[2017-11-10 14:52] VITALS: BP 156/76
[2017-11-10] MEDS ORDERED: Ondansetron 4 MG/2 ML SDV IV ONE (14:57)
[2017-11-10] MEDS ORDERED: HYDROmorphone 1 MG/ML Syringe IVPUSH ONE (14:57)
== END 2017-11-10 16:50 ==
LOC: DL.ED 14:45 → EEVIPCON 14:45 → DL.ED 16:50
DX: I12.0 Hypertensive chronic kidney disease with stage 5 chronic kidney disease or end stage renal disease (principal); E11.22 Type 2 diabetes mellitus with diabetic chronic kidney disease; N18.6 End stage renal disease; R74.8 Abnormal levels of other serum enzymes; Z79.899 Other long term (current) drug therapy; Z79.4 Long term (current) use of insulin; Z99.2 Dependence on renal dialysis
CPT/HCPCS: 36415; 80053; 82150; 83605; 83690; 85025; 87040; 99285; J1170; J2405; J7050

== ENCOUNTER 2020-07-10 04:52 | Emergency (ER) | payer MEDICARE, MEDICAID ==
[2020-07-10 05:01] VITALS: BP 137/62; PULSE 80
--- NOTE | 2020-07-10 05:04 | EDM.PDOC ---
ED HPI GENERAL MEDICAL PROBLEM - General Chief Complaint: Lower Extremity Injury/Pain Stated Complaint: AMBULANCE Time Seen by Provider: 07/10/20 05:04 Source of Information: Reports: Patient, EMS, EMS Notes Reviewed, RN, RN Notes Reviewed History Limitations: Reports: No Limitations - History of Present Illness INITIAL COMMENTS - FREE TEXT/NARRATIVE: Patient presents to ER per [facility] ambulance service with complaint of low back pain. Patient states she has had back pain in the past but this pain began last night and has progressively gotten worse. Patient states it is a sharp pain, denies any radiation into the legs. Patient states she has been using Tylenol at home has used up to 1500 mg without any improvement in pain. Patient is on chronic dialysis, last dialysis session was yesterday. Patient states she does not make urine anymore. Patient denies fever chills, nausea/vomiting/diarrhea, chest pains or shortness of breath. Patient does move herself and transfer herself from bed to chair and vice versa. Patient denies any known injury to the back. Onset: Gradual Treatments STARCHMAKER: Reports: Acetaminophen Bilateral Lower Knee Pain Score (Numeric/FACES): 10 - Related Data Allergies Allergy/AdvReac Type Severity Reaction Status Date / Time No Known Allergies Allergy Verified 07/10/20 04:54 Home Meds: Home Meds Sertraline HCl 150 mg PO DAILY 12/31/14 [History] buPROPion HCl [Bupropion Xl] 1 tab PO DAILY 11/25/15 [History] Calcium Carbonate/Vitamin D3 [Calcium Carb 500 MG] 1,000 mg PO TID 07/22/17 [History] Cholecalciferol (Vitamin D3) [Vitamin D3] 1,000 units PO DAILY 07/22/17 [History] Insulin Detemir [Levemir Flextouch] 40 units SQ BEDTIME 07/22/17 [History] Menthol/Zinc Oxide [Calmoseptine Ointment Packet] 1 dose TOP BID PRN 07/22/17 [History] Sevelamer Carbonate [Renvela] 2,400 mg PO TIDMEALS 07/22/17 [History] Amino Acids [Amino Acid] 1 each PO DAILY 11/19/18 [History] Cinacalcet [Sensipar] 90 mg PO WEEKLY 11/19/18 [History] Levothyroxine 125 mcg PO QAM 11/19/18 [History] Midodrine 10 mg PO Q2HR PRN 11/19/18 [History] Omeprazole 20 mg PO DAILY 11/19/18 [History] Sevelamer Carbonate [Renvela] 800 mg PO BIDMEALS 11/19/18 [History] Simvastatin [Zocor] 40 mg PO BEDTIME 11/19/18 [History] Past Medical History HEENT History: Reports: None Cardiovascular History: Reports: Hypertension Respiratory History: Reports: Sleep Apnea, SOB Gastrointestinal History: Reports: GERD Genitourinary History: Reports: Dialysis 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 Left necrotic foot Neurological History: Reports: Other (See Below) Other Neuro History: pt is mentally challenged Psychiatric History: Reports: Anxiety, Depression Endocrine/Metabolic History: Reports: Diabetes, Type II, IDDM, Obesity/BMI 30+ Other Immunologic History: MRSA Oncologic (Cancer) History: Reports: None Dermatologic History: Reports: Other (See Below) Other Dermatologic History: open wound to lower ABD and middle of back - Infectious Disease History Infectious Disease History: Reports: MRSA - Past Surgical History GI Surgical History: Reports: Cholecystectomy Social & Family History - Family History Family Medical History: Noncontributory Cardiac: Reports: CAD - Tobacco Use Smoking Status *Q: Never Smoker - Caffeine Use Caffeine Use: Reports: None - Recreational Drug Use Recreational Drug Use: No - Living Situation & Occupation Living situation: Reports: , with Spouse Occupation: Disabled Review of Systems - Review of Systems Review Of Systems: Comprehensive ROS is negative, except as noted in HPI. ED EXAM, GENERAL - Physical Exam Exam: See Below Exam Limited By: No Limitations General Appearance: Alert, WD/WN, Moderate Distress Eye Exam: Bilateral Eye: EOMI, Normal Inspection Ears: Normal External Exam, Hearing Grossly Normal Nose: Normal Inspection Throat/Mouth: Normal Inspection, Normal Voice, No Airway Compromise Head: Atraumatic, Normocephalic Neck: Normal Inspection, Supple, Non-Tender, Full Range of Motion Respiratory/Chest: No Respiratory Distress, No Accessory Muscle Use, Chest Non- Tender, Decreased Breath Sounds, Crackles (bases bilaterally) Cardiovascular: Normal Peripheral Pulses, Regular Rate, Rhythm, No Edema, No Gallop, No JVD, No Murmur, No Rub Peripheral Pulses: 2+: Radial (L), Radial (R) GI/Abdominal: Normal Bowel Sounds, Soft, Non-Tender (Female) Exam: Deferred Rectal (Female) Exam: Deferred Back Exam: Normal Inspection, Decreased Range of Motion, Vertebral Tenderness Extremities: Normal Range of Motion, Other (Bilateral AKA) Neurological: Alert, Oriented, CN II-XII Intact, Normal Cognition, No Motor/S ensory Deficits Psychiatric: Anxious, Tearful Skin Exam: Warm, Dry, Intact, Normal Color, No Rash Lymphatic: No Adenopathy Course - Vital Signs Last Recorded V/S: Last Vital Signs Temp 98.1 F 07/10/20 04:56 Pulse 80 07/10/20 04:56 Resp 19 07/10/20 04:56 BP 137/62 07/10/20 04:56 Pulse Ox 100 07/10/20 04:56 - Orders/Labs/Meds Orders: Active Orders 24 hr Category Date Time Status CULTURE BLOOD [BC] Stat Lab 07/10/20 05:07 Received Blood Culture x2 Reflex Set [OM.PC] Stat Oth 07/10/20 04:50 Ordered Labs: Laboratory Tests 07/10/20 07/10/20 07/10/20 Range/Units 05:07 05:07 05:07 WBC 6.9 (5.0-10.0) 10^3/uL RBC 3.81 L (4.2-5.4) 10^6/uL Hgb 11.3 L D (12.0-16.0) g/dL Hct 35.1 L (37.0-47.0) % MCV 92.1 (80-100) fL MCH 29.7 (27.0-34.0) pg MCHC 32.2 L (33.0-35.0) g/dL Plt Count 203 (150-450) 10^3/uL Neut % (Auto) 70.0 (42.2-75.2) % Lymph % (Auto) 13.9 L (20.5-50.1) % [place] % (Auto) 11.3 H (2-8) % Eos % (Auto) 4.5 H (1.0-3.0) % Baso % (Auto) 0.3 (0.0-1.0) % Add Manual Diff Yes Neutrophils % (Manual) 74 (42-75) % Band Neutrophils % 1 % Lymphocytes % (Manual) 12 L (20-50) % Monocytes % (Manual) 7 (2-8) % Eosinophils % (Manual) 6 H (1-3) % Sodium 136 (136-145) mmol/L Potassium 4.1 (3.5-5.1) mmol/L Chloride 97 L (98-107) mmol/L Carbon Dioxide 31 (21-32) mmol/L Anion Gap 12.1 (7-13) mEq/L BUN 42 H (7-18) mg/dL Creatinine 3.66 H (0.55-1.02) mg/dL Est Cr Clr Drug Dosing TNP Estimated GFR (MDRD) 13 BUN/Creatinine Ratio 11.5 (No establ ref range) Glucose 155 H (74-99) mg/dL Lactic Acid 1.2 (0.4-2.0) mmol/L Calcium 7.9 L (8.5-10.1) mg/dL Total Bilirubin 0.8 (0.2-1.0) mg/dL AST 46 H (15-37) U/L ALT 52 (14-59) U/L Alkaline Phosphatase 520 H (46-116) U/L B-Natriuretic Peptide 450 H (0-100) pg/ml Total Protein 9.3 H (6.4-8.2) g/dL Albumin 3.1 L (3.4-5.0) g/dL Globulin 6.2 Albumin/Globulin Ratio 0.50 Meds: Medications Discontinued Medications Generic Name Dose Route Start Last Admin Trade Name Freq PRN Reason Stop Dose Admin Dexamethasone 10 mg 07/10/20 05:31 07/10/20 05:42 Dexamethasone IM 07/10/20 05:32 10 mg ONETIME ONE Administration Ketorolac Tromethamine 30 mg 07/10/20 05:31 07/10/20 05:47 Toradol IM 07/10/20 05:32 30 mg ONETIME ONE Administration Orphenadrine Citrate 60 mg 07/10/20 05:31 07/10/20 05:45 Norflex IM 07/10/20 05:32 60 mg ONETIME ONE Administration - Radiology Interpretation Free Text/Narrative:: Lumbar Spine xray: PROCEDURE INFORMATION: Exam: XR Lumbosacral Spine, 2 or 3 Views Exam date and time: 07/10/2020 6:07 AM Age: 49 years old Clinical indication: Low back pain; Additional info: Sharp low back pain TECHNIQUE: Imaging protocol: XR of the lumbosacral spine, 2 or 3 views. COMPARISON: CT Abdomen Pelvis w Cont 11/19/2018 8:24 AM FINDINGS: Vertebrae: Possible interval slight worsening of the Grade 2 spondylolisthesis and moderate to marked disc narrowing at L5-S1. Bilateral L5 spondylolysis more apparent previously. Stable slight wedging of T12 and L1. No new malalignment. Soft tissues: Continued surgical clips in the right upper abdomen. Vasculature: Continued arterial calcifications. IMPRESSION: 1. Possible interval slight worsening of the grade 2 spondylolisthesis and mod erate to marked disc narrowing at L5-S1. Bilateral L5 spondylolysis more apparent previously. 2. Stable slight T12 and L1 compression fractures. Thank you for allowing us to participate in the care of your patient. Dictated and Authenticated by: Tori Alvarez MD 07/10/2020 6:52 AM Central Time ([place] & [place]) Thoracic Spine xray: PROCEDURE INFORMATION: Exam: XR Thoracic Spine, 2 Views Exam date and time: 07/10/2020 6:03 AM Age: 49 years old Clinical indication: Pain in thoracic spine; Additional info: Sharp low back pain TECHNIQUE: Imaging protocol: XR of the thoracic spine, 2 views. COMPARISON: No relevant prior studies available. FINDINGS: Vertebrae: Slight right convex scoliosis. Several old-appearing mild compression fractures. No obvious malalignment. Old bilateral rib fractures. Stranding density in the area of the right posterior sulcus. Probable calcified granuloma over the lateral upper right liver. Elevation of the right hemidiaphragm. Soft tissues: Unremarkable. Intraperitoneal space: Cholecystectomy. IMPRESSION: 1. Old-appearing mild compression fractures. Old bilateral rib fractures. 2. Probable slight atelectasis in the right posterior sulcus. Elevation of the right hemidiaphragm. Other findings detailed above. Thank you for allowing us to participate in the care of your patient. Dictated and Authenticated by: Tori Alvarez MD 07/10/2020 6:39 AM Central Time ([place] & [place]) Chest xray: PROCEDURE INFORMATION: Exam: XR Chest, 1 View Exam date and time: 07/10/2020 5:57 AM Age: 49 years old Clinical indication: Chest pain; Type not specified TECHNIQUE: Imaging protocol: XR of the chest Views: 1 view. COMPARISON: CR Chest 1V Frontal 11/27/2015 8:49 AM FINDINGS: Lungs: Continued slight patchy density along the right hemidiaphragm suggesting atelectasis. No interval consolidation. Pleural space: Still no pneumothorax or visible pleural fluid. Heart/Mediastinum: Continued mild cardiomegaly. Diaphragm: Continued elevation of the right hemidiaphragm. Bones/joints: Diffuse osteopenia again evident. Interval visualization of an old left rib fracture. IMPRESSION: Continued cardiomegaly and probable atelectasis in the right lung base. No apparent acute disease. Thank you for allowing us to participate in the care of your patient. Dictated and Authenticated by: Tori Alvarez MD 07/10/2020 6:33 AM Central Time ([place] & [place]) See rad report Departure - Departure Time of Disposition: 06:57 Disposition: Home, Self-Care 01 Condition: Fair Clinical Impression: Low back pain Qualifiers: Chronicity: acute Back pain laterality: left Sciatica presence: without sciatica Qualified Code(s): M54.5 - Low back pain - Discharge Information *PRESCRIPTION DRUG MONITORING PROGRAM REVIEWED*: No *COPY OF PRESCRIPTION DRUG MONITORING REPORT IN PATIENT COOPER: No Instructions: Muscle Strain, [id number], Chronic Back Pain, [id number] Forms: ED Department Discharge Additional Instructions: Follow-up with your primary care provider if no improvement May use Tylenol as directed for pain May use low heat to the area as tolerated Sepsis Event Note (ED) - Evaluation Sepsis Screening Result: No Definite Risk - Focused Exam Vital Signs: Vital Signs Temp Pulse Resp BP Pulse Ox 07/10/20 04:56 98.1 F 80 19 137/62 100 - My Orders Last 24 Hours: My Active Orders 07/10/20 04:50 Blood Culture x2 Reflex Set [OM.PC] Stat 07/10/20 05:07 CULTURE BLOOD [BC] Stat - Assessment/Plan Last 24 Hours: My Active Orders 07/10/20 04:50 Blood Culture x2 Reflex Set [OM.PC] Stat 07/10/20 05:07 CULTURE BLOOD [BC] Stat
[2020-07-10] MEDS ORDERED: Orphenadrine 60 MG/2 ML Inj IM ONE (05:31)
[2020-07-10] MEDS ORDERED: Dexamethasone 4 MG/ML SDV IM ONE (05:31)
[2020-07-10] MEDS ORDERED: Ketorolac 30 MG/ML SDV IM ONE (05:31)
[2020-07-10 05:43] LABS: ANION GAP 12.1 mEq/L (7-13); CHLORIDE,CL 97 mmol/L (98-107); SODIUM,NA 136 mmol/L (136-145)
--- NOTE | 2020-07-10 06:33 | CR ---
PROCEDURE INFORMATION: Exam: XR Chest, 1 View Exam date and time: 07/10/2020 5:57 AM Age: 49 years old Clinical indication: Chest pain; Type not specified TECHNIQUE: Imaging protocol: XR of the chest Views: 1 view. COMPARISON: CR Chest 1V Frontal 11/27/2015 8:49 AM FINDINGS: Lungs: Continued slight patchy density along the right hemidiaphragm suggesting atelectasis. No interval consolidation. Pleural space: Still no pneumothorax or visible pleural fluid. Heart/Mediastinum: Continued mild cardiomegaly. Diaphragm: Continued elevation of the right hemidiaphragm. Bones/joints: Diffuse osteopenia again evident. Interval visualization of an old left rib fracture. IMPRESSION: Continued cardiomegaly and probable atelectasis in the right lung base. No apparent acute disease.
--- NOTE | 2020-07-10 06:39 | CR ---
PROCEDURE INFORMATION: Exam: XR Thoracic Spine, 2 Views Exam date and time: 07/10/2020 6:03 AM Age: 49 years old Clinical indication: Pain in thoracic spine; Additional info: Sharp low back pain TECHNIQUE: Imaging protocol: XR of the thoracic spine, 2 views. COMPARISON: No relevant prior studies available. FINDINGS: Vertebrae: Slight right convex scoliosis. Several old-appearing mild compression fractures. No obvious malalignment. Old bilateral rib fractures. Stranding density in the area of the right posterior sulcus. Probable calcified granuloma over the lateral upper right liver. Elevation of the right hemidiaphragm. Soft tissues: Unremarkable. Intraperitoneal space: Cholecystectomy. IMPRESSION: 1. Old-appearing mild compression fractures. Old bilateral rib fractures. 2. Probable slight atelectasis in the right posterior sulcus. Elevation of the right hemidiaphragm. Other findings detailed above.
--- NOTE | 2020-07-10 06:53 | CR ---
PROCEDURE INFORMATION: Exam: XR Lumbosacral Spine, 2 or 3 Views Exam date and time: 07/10/2020 6:07 AM Age: 49 years old Clinical indication: Low back pain; Additional info: Sharp low back pain TECHNIQUE: Imaging protocol: XR of the lumbosacral spine, 2 or 3 views. COMPARISON: CT Abdomen Pelvis w Cont 11/19/2018 8:24 AM FINDINGS: Vertebrae: Possible interval slight worsening of the Grade 2 spondylolisthesis and moderate to marked disc narrowing at L5-S1. Bilateral L5 spondylolysis more apparent previously. Stable slight wedging of T12 and L1. No new malalignment. Soft tissues: Continued surgical clips in the right upper abdomen. Vasculature: Continued arterial calcifications. IMPRESSION: 1. Possible interval slight worsening of the grade 2 spondylolisthesis and moderate to marked disc narrowing at L5-S1. Bilateral L5 spondylolysis more apparent previously. 2. Stable slight T12 and L1 compression fractures.
== END 2020-07-10 07:14 | disposition home or self-care (01) ==
LOC: DL.ED 04:52
DX: M54.5 Low back pain (principal); I10 Essential (primary) hypertension; K21.9 Gastro-esophageal reflux disease without esophagitis; E11.9 Type 2 diabetes mellitus without complications; F41.9 Anxiety disorder, unspecified; F32.9 Major depressive disorder, single episode, unspecified; E66.9 Obesity, unspecified; Z79.4 Long term (current) use of insulin; Z79.899 Other long term (current) drug therapy
CPT/HCPCS: 36415; 71045; 72070; 72100; 80053; 83605; 83880; 85025; 87040; 87077; 87186; 96372; 99284; J1100; J1885; J2360

== ENCOUNTER 2020-07-10 17:02 | Emergency (ER) | payer MEDICARE, MEDICAID ==
[2020-07-10] MEDS ORDERED: Acetaminophen/HYDROcodone 325-10 MG Tab PO ONE ×2 (17:03→17:47)
[2020-07-10 17:16] VITALS: PULSE 92
[2020-07-10 17:23] VITALS: BP 147/59
[2020-07-10] MEDS ORDERED: Acetaminophen/HYDROcodone 325-10 MG Tab ONE (18:04)
--- NOTE | 2020-07-10 18:06 | EDM.PDOC ---
ED HPI GENERAL MEDICAL PROBLEM - General Chief Complaint: Back Pain or Injury Time Seen by Provider: 07/10/20 17:40 Source of Information: Reports: Patient History Limitations: Reports: No Limitations - History of Present Illness INITIAL COMMENTS - FREE TEXT/NARRATIVE: This 49 yo female patient was brought to the ED by [facility] due to continued lower back pain. The patient reports her pain started at about 0400 this morning. The patient was seen in the ED and given Toradol, Dexamethasone and Norflex during that visit. This afternoon, the patient called the ambulance due to continued lower back pain. The patient reports she took Tylenol (1000 mg) at about 1600 with no symptom relief. Onset: Today Duration: Constant Location: Reports: Back Quality: Reports: Ache Severity: Moderate Improves with: Reports: None Worsens with: Reports: None Context: Reports: Other Back Pain Score (Numeric/FACES): 10 - Related Data Allergies Allergy/AdvReac Type Severity Reaction Status Date / Time No Known Allergies Allergy Verified 07/10/20 17:16 Home Meds: Home Meds Sertraline HCl 150 mg PO DAILY 12/31/14 [History] buPROPion HCl [Bupropion Xl] 1 tab PO DAILY 11/25/15 [History] Menthol/Zinc Oxide [Calmoseptine Ointment Packet] 1 dose TOP BID PRN 07/22/17 [History] Sevelamer Carbonate [Renvela] 2,400 mg PO TIDMEALS 07/22/17 [History] Cinacalcet [Sensipar] 90 mg PO WEEKLY 11/19/18 [History] Levothyroxine 125 mcg PO QAM 11/19/18 [History] Midodrine 10 mg PO Q2HR PRN 11/19/18 [History] Sevelamer Carbonate [Renvela] 800 mg PO BIDMEALS 11/19/18 [History] Past Medical History HEENT History: Reports: None Cardiovascular History: Reports: Hypertension Respiratory History: Reports: Sleep Apnea, SOB Gastrointestinal History: Reports: GERD Genitourinary History: Reports: Dialysis [employer]IC History: 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 Left necrotic foot Neurological History: Reports: Other (See Below) Other Neuro History: pt is mentally challenged Psychiatric History: Reports: Anxiety, Depression Endocrine/Metabolic History: Reports: Diabetes, Type II, IDDM, Obesity/BMI 30+ Hematologic History: Reports: None Other Immunologic History: MRSA Oncologic (Cancer) History: Reports: None Dermatologic History: Reports: Other (See Below) Other Dermatologic History: open wound to lower ABD and middle of back - Infectious Disease History Infectious Disease History: Reports: None - Past Surgical History GI Surgical History: Reports: Cholecystectomy Social & Family History - Family History Family Medical History: Noncontributory Cardiac: Reports: CAD - Tobacco Use Smoking Status *Q: Never Smoker Second Hand Smoke Exposure: No - Caffeine Use Caffeine Use: Reports: Coffee - Recreational Drug Use Recreational Drug Use: No - Living Situation & Occupation Living situation: Reports: , with Spouse Occupation: Disabled ED ROS GENERAL - Review of Systems Review Of Systems: Comprehensive ROS is negative, except as noted in HPI. ED EXAM,LOWER BACK PAIN/INJURY - Physical Exam Exam: See Below Exam Limited By: No Limitations General Appearance: Alert, WD/WN, Moderate Distress, Obese Eye Exam: Bilateral Eye: EOMI, Normal Inspection, PERRL Ears: Normal External Exam, Normal Canal, Hearing Grossly Normal, Normal TMs Nose: Normal Inspection, Normal Mucosa, No Blood Throat/Mouth: Normal Inspection, Normal Lips, Normal Teeth, Normal Gums, Normal Oropharynx, Normal Voice, No Airway Compromise Head: Atraumatic, Normocephalic Neck: Normal Inspection, Supple, Non-Tender, Full Range of Motion Respiratory/Chest: No Respiratory Distress, Lungs Clear, Normal Breath Sounds, No Accessory Muscle Use, Chest Non-Tender Cardiovascular: Normal Peripheral Pulses, Regular Rate, Rhythm, No Edema, No Gallop, No JVD, No Murmur, No Rub GI/Abdominal: Normal Bowel Sounds, Soft, Non-Tender, Other (Morbid obesity) (Female) Exam: Deferred Rectal (Female) Exam: Deferred Back Exam: Vertebral Tenderness (L4-L5) Extremities: Other (bilateral below the knee amputee) Neurological: Alert, Normal Mood/Affect, Oriented x 3 Psychiatric: Normal Affect, Normal Mood Skin Exam: Warm, Dry, Intact, Normal Color, No Rash Lymphatic: No Adenopathy Course - Vital Signs Last Recorded V/S: Last Vital Signs Temp 36.1 C 07/10/20 17:08 Pulse 92 07/10/20 17:08 Resp 16 07/10/20 17:08 BP 147/59 H 07/10/20 17:23 Pulse Ox 94 L 07/10/20 17:08 - Orders/Labs/Meds Meds: Medications Discontinued Medications Generic Name Dose Route Start Last Admin Trade Name Osbaldo PRN Reason Stop Dose Admin Hydrocodone Bitart/Acetaminophen 1 tab 07/10/20 17:47 07/10/20 17:57 [place] 325-10 Mg PO 07/10/20 17:48 1 tab ONETIME ONE Administration Hydrocodone Bitart/Acetaminophen Confirm 07/10/20 18:04 [place] 325-10 Mg Administered 07/10/20 18:05 Dose 2 tab .ROUTE .STK-MED ONE Departure - Departure Time of Disposition: 18:01 Disposition: Home, Self-Care 01 Condition: Fair Clinical Impression: Low back pain Qualifiers: Chronicity: acute Back pain laterality: left Sciatica presence: without sciatica Qualified Code(s): M54.5 - Low back pain - Discharge Information *PRESCRIPTION DRUG MONITORING PROGRAM REVIEWED*: Yes *COPY OF PRESCRIPTION DRUG MONITORING REPORT IN PATIENT COOPER: Not Applicable Instructions: Acute Back Pain, Adult Forms: ED Department Discharge Care Plan Goals: The patient was advised of the examination results. Since the patient was seen in the ED earlier today, the patient was reminded of the x-ray and lab results d uring the visit. The patient had been given a steroid, muscle relaxer and an antiinflammatory medication during her earlier visit. With the patient's pain continuing, the patient was given an oral dose of [place] (10/325) while in the ED. The patient was also discharged with [place] (10/325) #2 to take 1 by mouth every 6 hours as needed for pain. The patient was advised to follow-up with her primary care facility for continued evaluation and further management. Sepsis Event Note (ED) - Evaluation Sepsis Screening Result: No Definite Risk - Focused Exam Vital Signs: Vital Signs Temp Pulse Resp BP Pulse Ox 07/10/20 17:23 147/59 H 07/10/20 17:08 36.1 C 92 16 154/55 H 94 L
== END 2020-07-10 18:24 | disposition home or self-care (01) ==
LOC: DL.ED 17:02
DX: M54.5 Low back pain (principal); I10 Essential (primary) hypertension; E11.9 Type 2 diabetes mellitus without complications; E66.9 Obesity, unspecified; F41.9 Anxiety disorder, unspecified; F32.9 Major depressive disorder, single episode, unspecified; Z79.899 Other long term (current) drug therapy; K21.9 Gastro-esophageal reflux disease without esophagitis
CPT/HCPCS: 36415; 71045; 72070; 72100; 80053; 83605; 83880; 85025; 87040; 87077; 87186; 96372; 99284; A9270; J1100; J1885; J2360

== ENCOUNTER 2020-07-11 06:57 | Emergency (ER) | payer MEDICARE, MEDICAID ==
[2020-07-11] MEDS ORDERED: Naloxone 2 MG/2 ML Syringe IV ONE (07:06)
[2020-07-11] MEDS ORDERED: EPINEPHrine 1:10,000 1 MG/10 ML Syringe IV ONE ×2 (07:16→07:20)
--- NOTE | 2020-07-11 07:22 | CR ---
PROCEDURE INFORMATION: Exam: XR Chest, 1 View Exam date and time: 07/11/2020 7:12 AM Age: 49 years old Clinical indication: Device placement; Additional info: Tube placement TECHNIQUE: Imaging protocol: XR of the chest Views: 1 view. COMPARISON: CR Chest 1V Frontal 07/10/2020 5:57 AM FINDINGS: Tubes, catheters and devices: Endotracheal tube in the right mainstem bronchus. Lungs: Linear atelectasis at the right lung base. Retrocardiac increased opacity most likely represents a combination of consolidation, atelectasis, and/or pleural effusion. There is mild perihilar interstitial prominence consistent with volume overload or early congestive heart failure. Pleural space: There is a blunted left costophrenic angle consistent with either a small pleural effusion or scarring. Heart/Mediastinum: The heart is enlarged. Diaphragm: There is an elevated right hemidiaphragm present on the current examination. Bones/joints: Unremarkable. IMPRESSION: 1. Endotracheal tube in the right mainstem bronchus. 2. Retrocardiac increased opacity most likely represents a combination of consolidation, atelectasis, and/or pleural effusion. 3. There is mild perihilar interstitial prominence consistent with volume overload or early congestive heart failure.
[2020-07-11] MEDS ORDERED: Lidocaine 1% 50 MG/5 ML Syringe IVPUSH ONE (07:23)
[2020-07-11 07:41] LABS: ANION GAP 28.8 mEq/L (7-13); CHLORIDE,CL 95 mmol/L (98-107); SODIUM,NA 134 mmol/L (136-145)
[2020-07-11 08:33] LABS: BASE EXCESS VENOUS -21.6 mmol/l ((-2)-(+3)); BICARBONATE,VENOUS 14 mmol/l (19-25); O2 DELIVERY DEVICE RESUSCITATION BAG; O2 SATURATION VENOUS 84.3 % (60-80); PCO2 VENOUS 97 mmHg (41-51); PO2 VENOUS 99 mmHg (35-42)
--- NOTE | 2020-07-14 07:23 | EDM.PDOC ---
ED HPI GENERAL MEDICAL PROBLEM - General Chief Complaint: CPR in Progress Stated Complaint: IN BY AMBULANCE Time Seen by Provider: 07/11/20 06:59 Source of Information: Reports: EMS, EMS Notes Reviewed, Family, RN, RN Notes Reviewed, Significant Other History Limitations: Reports: Other - History of Present Illness INITIAL COMMENTS - FREE TEXT/NARRATIVE: Patient brought to ER per [facility]. CPR was performed in route, upon arrival to the ER patient does have a strong carotid pulse. Patient was intubated in the field and being bagged upon arrival. EMS did deliver 2 rounds of epinephrine in route. Upon arrival heart rate is 90 respirations at 18 BVM. Patient is a chronic hemodialysis patient. Has a fistula to the left upper arm. IO started in the field per EMS to the right shoulder. Narcan was given. Patient has been seen twice in the ER in the past 24 to 36 hours for low back pain. Patient was initially worked up for kidney infection, all labs as expected for this particular chronic renal failure patient. Patient again presented to ER with complaint of pain. 2 pain pills were sent home with the patient. Family states they did see the patient breathing approximately 1 hour prior to the ambulance being called. states he awoke and found the patient unresponsive. Please see CODE BLUE sheet for further charting Onset: Today, Sudden - Related Data Allergies Allergy/AdvReac Type Severity Reaction Status Date / Time No Known Allergies Allergy Verified 07/10/20 17:16 Home Meds: Home Meds Sertraline HCl 150 mg PO DAILY 12/31/14 [History] buPROPion HCl [Bupropion Xl] 1 tab PO DAILY 11/25/15 [History] Menthol/Zinc Oxide [Calmoseptine Ointment Packet] 1 dose TOP BID PRN 07/22/17 [History] Sevelamer Carbonate [Renvela] 2,400 mg PO TIDMEALS 07/22/17 [History] Cinacalcet [Sensipar] 90 mg PO WEEKLY 11/19/18 [History] Levothyroxine 125 mcg PO QAM 11/19/18 [History] Midodrine 10 mg PO Q2HR PRN 11/19/18 [History] Sevelamer Carbonate [Renvela] 800 mg PO BIDMEALS 11/19/18 [History] Past Medical History HEENT History: Reports: None Cardiovascular History: Reports: Hypertension Respiratory History: Reports: Sleep Apnea, SOB Gastrointestinal History: Reports: GERD Genitourinary History: Reports: 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 Left necrotic foot Neurological History: Reports: Other (See Below) Other Neuro History: pt is mentally challenged Psychiatric History: Reports: Anxiety, Depression Endocrine/Metabolic History: Reports: Diabetes, Type II, IDDM, Obesity/BMI 30+ Other Immunologic History: MRSA Oncologic (Cancer) History: Reports: None Dermatologic History: Reports: Other (See Below) Other Dermatologic History: open wound to lower ABD and middle of back - Infectious Disease History Infectious Disease History: Reports: MRSA - Past Surgical History GI Surgical History: Reports: Cholecystectomy Social & Family History - Family History Family Medical History: Noncontributory Cardiac: Reports: CAD - Caffeine Use Caffeine Use: Reports: None - Living Situation & Occupation Living situation: Reports: , with Spouse Occupation: Disabled ED ROS GENERAL - Review of Systems Review Of Systems: Comprehensive ROS is negative, except as noted in HPI. ED EXAM, CPR - Physical Exam Exam: See Below Limited By: Unresponsive General Appearance: Obese, Other (Unresponsive, being ventilated per BVM) Eye Exam: Bilateral Eye: PERRL (Fixed 4) Ears: Normal External Exam Nose: Normal Inspection Head: Atraumatic, Normocephalic Cardiovascular: Other (See code blue sheet charting) (Female) Exam: Deferred Extremities: Other (Bilateral BKA) Neurological: Unresponsive Skin Exam: Dry, Intact, Cool Course - Orders/Labs/Meds Labs: Laboratory Tests 07/11/20 07/11/20 07/11/20 Range/Units 07:04 07:05 07:05 WBC 17.4 H (5.0-10.0) 10^3/uL RBC 3.57 L (4.2-5.4) 10^6/uL Hgb 10.6 L (12.0-16.0) g/dL Hct 35.1 L (37.0-47.0) % MCV 98.3 D (80-100) fL MCH 29.7 (27.0-34.0) pg MCHC 30.2 L (33.0-35.0) g/dL Plt Count 154 (150-450) 10^3/uL Neut % (Auto) 65.0 (42.2-75.2) % Lymph % (Auto) 28.3 (20.5-50.1) % [place] % (Auto) 6.4 (2-8) % Eos % (Auto) 0.2 L (1.0-3.0) % Baso % (Auto) 0.1 (0.0-1.0) % Add Manual Diff Yes Neutrophils % (Manual) 29 L (42-75) % Band Neutrophils % 17 % Lymphocytes % (Manual) 36 (20-50) % Monocytes % (Manual) 6 (2-8) % Metamyelocytes % 5 Myelocytes % 7 VBG pH (7.31-7.41) VBG pCO2 (41-51) mmHg VBG pO2 (35-42) mmHg VBG HCO3 (19-25) mmol/l VBG O2 Saturation (60-80) % VBG Base Excess ((-2)-(+3)) mmol/l O2 Delivery Device Sodium 134 L (136-145) mmol/L Potassium 4.8 (3.5-5.1) mmol/L Chloride 95 L (98-107) mmol/L Carbon Dioxide 15 L D (21-32) mmol/L Anion Gap 28.8 H (7-13) mEq/L BUN 61 H (7-18) mg/dL Creatinine 5.63 H* D (0.55-1.02) mg/dL Est Cr Clr Drug Dosing TNP Estimated GFR (MDRD) 8 BUN/Creatinine Ratio 10.8 (No establ ref range) Glucose 221 H (74-99) mg/dL POC Glucose 171 H (70-105) mg/dl Lactic Acid (0.4-2.0) mmol/L Calcium 8.6 (8.5-10.1) mg/dL Total Bilirubin 0.8 (0.2-1.0) mg/dL AST 45 H (15-37) U/L ALT 50 (14-59) U/L Alkaline Phosphatase 364 H (46-116) U/L Troponin I 0.051 (0.000-0.056) ng/mL Total Protein 7.5 (6.4-8.2) g/dL Albumin 2.3 L (3.4-5.0) g/dL Globulin 5.2 Albumin/Globulin Ratio 0.44 07/11/20 07/11/20 Range/Units 07:05 07:30 WBC (5.0-10.0) 10^3/uL RBC (4.2-5.4) 10^6/uL Hgb (12.0-16.0) g/dL Hct (37.0-47.0) % MCV (80-100) fL MCH (27.0-34.0) pg MCHC (33.0-35.0) g/dL Plt Count (150-450) 10^3/uL Neut % (Auto) (42.2-75.2) % Lymph % (Auto) (20.5-50.1) % [place] % (Auto) (2-8) % Eos % (Auto) (1.0-3.0) % Baso % (Auto) (0.0-1.0) % Add Manual Diff Neutrophils % (Manual) (42-75) % Band Neutrophils % % Lymphocytes % (Manual) (20-50) % Monocytes % (Manual) (2-8) % Metamyelocytes % Myelocytes % VBG pH 6.80 L* (7.31-7.41) VBG pCO2 97 H* (41-51) mmHg VBG pO2 99 H (35-42) mmHg VBG HCO3 14 L (19-25) mmol/l VBG O2 Saturation 84.3 H (60-80) % VBG Base Excess -21.6 L ((-2)-(+3)) mmol/l O2 Delivery Device Resuscitation bag Sodium (136-145) mmol/L Potassium (3.5-5.1) mmol/L Chloride (98-107) mmol/L Carbon Dioxide (21-32) mmol/L Anion Gap (7-13) mEq/L BUN (7-18) mg/dL Creatinine (0.55-1.02) mg/dL Est Cr Clr Drug Dosing Estimated GFR (MDRD) BUN/Creatinine Ratio (No establ ref range) Glucose (74-99) mg/dL POC Glucose (70-105) mg/dl Lactic Acid 14.6 H* (0.4-2.0) mmol/L Calcium (8.5-10.1) mg/dL Total Bilirubin (0.2-1.0) mg/dL AST (15-37) U/L ALT (14-59) U/L Alkaline Phosphatase (46-116) U/L Troponin I (0.000-0.056) ng/mL Total Protein (6.4-8.2) g/dL Albumin (3.4-5.0) g/dL Globulin Albumin/Globulin Ratio Meds: Medications Discontinued Medications Generic Name Dose Route Start Last Admin Trade Name Freq PRN Reason Stop Dose Admin Epinephrine HCl 1 mg 07/11/20 07:16 Epinephrine 1:10,000 IV 07/11/20 07:17 .STK-MED ONE Epinephrine HCl 1 mg 07/11/20 07:20 Epinephrine 1:10,000 IV 07/11/20 07:21 .STK-MED ONE Norepinephrine Bitartrate 4 mg 254 mls @ as directed 07/11/20 07:23 / Dextrose/Water IV 07/11/20 07:24 .STK-MED ONE Lidocaine HCl 100 mg 07/11/20 07:23 Xylocaine 1% IVPUSH 07/11/20 07:24 .STK-MED ONE Naloxone HCl 0.2 mg 07/11/20 07:06 Narcan IV 07/11/20 07:07 .STK-MED ONE Departure - Departure Time of Disposition: :27 Disposition: 20 Preliminary Cause of *Q: Cardiac Arrest Condition: Critical Clinical Impression: Cardiac arrest - Discharge Information *PRESCRIPTION DRUG MONITORING PROGRAM REVIEWED*: No *COPY OF PRESCRIPTION DRUG MONITORING REPORT IN PATIENT COOPER: No Referrals: PCP,Unobtain [Ordering Only Provider] - Forms: ED Department Discharge
== END 2020-07-11 07:36 | disposition expired ==
LOC: DL.ED 06:57
DX: I46.9 Cardiac arrest, cause unspecified (principal); I10 Essential (primary) hypertension; F32.9 Major depressive disorder, single episode, unspecified; E11.9 Type 2 diabetes mellitus without complications; E66.9 Obesity, unspecified; Z79.899 Other long term (current) drug therapy
CPT/HCPCS: 31500; 36415; 71045; 80053; 82803; 82962; 83605; 84484; 85025; 92950; 99285; J0171; J2001; J2310; J7060; 92960